=== PATIENT | female | born 1965 | race Caucasian/White ===

== ENCOUNTER 2020-07-18 11:09 | Emergency (ER) | payer BC, OTHER ==
[2020-07-18] MEDS ORDERED: KETOROLAC 30 MG/ML INJ ONE (14:01)
[2020-07-18 14:08] LABS: ALT/SGPT 33 U/L (12-78); AST/SGOT 12 U/L (15-37); Absolute Lymphocytes (CBC) 2.8 K/uL (0.7-4.9); Albumin 3.9 g/dL (3.4-5.0); Alkaline Phosphatase 113 U/L (45-117); BUN Blood Urea Nitrogen 27 mg/dL (7-18); Basophils % 0.7 % (0-1.3); Bicarbonate 30 mmol/L (21-32); Bilirubin Direct < 0.1 mg/dL (0-0.2); Bilirubin Total 0.3 mg/dL (0.2-1.0); Glucose Level 295 mg/dL (74-106); Lymphocytes % 44.5 % (15.3-44.8); MPV 8.2 fL (7.6-11.3); Magnesium 1.8 mg/dL (1.8-2.4); NT PRO-BNP 162 pg/mL (<125); Potassium 4.6 mmol/L (3.5-5.1); Protein, Total 7.7 g/dL (6.4-8.2); RBC Red Blood Cell Count 4.49 M/uL (3.86-4.86); Sodium Level 137 mmol/L (136-145); Troponin (Emerg Dept Use Only) < 0.02 ng/mL (0.0-0.045)
[2020-07-18 14:21] LABS: Protime INR 0.9
--- NOTE | 2020-07-18 14:44 | RAD REPORT ---
EXAM DESCRIPTION: Matt Single View07/18/2020 2:37 pm CLINICAL HISTORY: Chest pain COMPARISON: 2013 FINDINGS: The lungs appear clear of acute infiltrate. The heart is normal size IMPRESSION: No acute abnormalities displayed
--- NOTE | 2020-07-18 14:45 | RAD REPORT ---
EXAM DESCRIPTION: USExtrem Venous W Compress Bil07/18/2020 2:33 pm CLINICAL HISTORY: Bilateral leg swelling COMPARISON: none FINDINGS: The common femoral, superficial femoral, popliteal and posterior tibial veins bilaterally are compressible and demonstrate augmentation. Doppler demonstrates good flow. IMPRESSION: No evidence of deep venous thrombosis involving either lower extremity.
--- NOTE | 2020-07-18 20:10 | ER ---
Nurse's Notes [facility] Name: Sonali Neville Age: 55 yrs Sex: Female : 1965 Arrival Date: 07/18/2020 Time: 11:13 Bed 13 Private MD: Diagnosis: Chest pain, unspecified Presentation: 07/18 11:34 Chief complaint: Patient states: L chest pain with breathing since last night. No cough ll1 or fever. Pain increases with deep breathing. Coronavirus screen: Client denies travel out of the [place] in the last 14 days. At this time, the client does not indicate any symptoms associated with coronavirus-19. Ebola Screen: Patient denies travel to an Ebola-affected area in the 21 days before illness onset. Initial Sepsis Screen: Does the patient meet any 2 criteria? No. Patient's initial sepsis screen is negative. Does the patient have a suspected source of infection? No. Patient's initial sepsis screen is negative. Risk Assessment: Do you want to hurt yourself or someone else? Patient reports no desire to harm self or others. Onset of symptoms was July 17, 2020. 11:34 Method Of Arrival: Ambulatory ll1 11:34 Acuity: LIZETTE 3 ll1 Historical: - Allergies: 11:36 No Known Allergies; ll1 - PMHx: 11:36 Hypertension; Hypothyroidism; Diabetes - IDDM; ll1 - PSHx: 11:36 Cholecystectomy; Tonsillectomy; foot surgery; ll1 - Immunization history:: Client reports receiving the 1st dose of the Covid vaccine, Flu vaccine is up to date. - Social history:: Smoking status: Patient denies any tobacco usage or history of. Screenin:00 Abuse screen: Denies threats or abuse. Nutritional screening: No deficits noted. bw Tuberculosis screening: No symptoms or risk factors identified. Fall Risk None identified. Assessment: 14:00 Pain: Complains of pain in anterior aspect of left upper chest. Neuro: No deficits bw noted. Cardiovascular: Reports chest pain. Respiratory: Reports pain with movement pain with respiration. GI: No deficits noted. : No deficits noted. EENT: No deficits noted. Derm: No deficits noted. 15:03 Reassessment: Patient appears in no apparent distress at this time. Patient and/or bw family updated on plan of care and expected duration. Pain level reassessed. Patient is alert, oriented x 3, equal unlabored respirations, skin warm/dry/pink. 19:02 Reassessment: Patient appears in no apparent distress at this time. Patient and/or bw family updated on plan of care and expected duration. Pain level reassessed. Patient is alert, oriented x 3, equal unlabored respirations, skin warm/dry/pink. Vital Signs: 11:34 BP 179 / 94; Pulse 82; Resp 17; Temp 98.8; Pulse Ox 98% ; Weight 106.59 kg; Height 5 ll1 ft. 6 in. (167.64 cm); Pain 8/10; 13:44 BP 130 / 85; Pulse 73; Resp 18; Pulse Ox 100% on R/A; mh5 15:13 BP 131 / 78; Pulse 74; Resp 16; Temp 98.6(O); Pulse Ox 99% on R/A; mh5 16:06 BP 121 / 74; Pulse 71; Resp 17; Pulse Ox 100% on R/A; mh5 19:00 BP 116 / 69; Pulse 73; Resp 16; Pulse Ox 98% ; sf 19:03 BP 113 / 69; Pulse 72; Resp 15; Pulse Ox 99% on R/A; bw 19:15 BP 125 / 76; Pulse 74; Resp 16; Pulse Ox 97% ; sf 20:00 BP 121 / 60; Pulse 69; Resp 16; Pulse Ox 100% ; sf 11:34 Body Mass Index 37.93 (106.59 kg, 167.64 cm) ll1 ED Course: 11:13 Patient arrived in ED. ds1 11:34 Arm band placed on. ll1 11:36 Triage completed. ll1 13:18 Duke Cee PA is PHCP. cp 13:18 Serge Collins MD is Attending Physician. cp 13:25 Preeti Davis, BENJAMIN is Primary Nurse. bw 13:29 EKG done, by ED staff, reviewed by Serge Collins MD. mh5 13:30 Patient has correct armband on for positive identification. Placed in gown. Bed in low mh5 position. Call light in reach. Adult w/ patient. Warm blanket given. residential monitor on. Pulse ox on. NIBP on. 13:40 Inserted saline lock: 20 gauge in right wrist, using aseptic technique. Blood collected.jp3 13:40 Patient maintains SpO2 saturation greater than 95% on room air. 3 13:42 Troponin (emerg Dept Use Only) Sent. [facility] 13:42 PT-INR Sent. 5 13:42 NT PRO-BNP Sent. 5 13:42 Magnesium Sent. 5 13:42 LFT's Sent. 5 13:42 CBC with Diff Sent. 5 13:43 Basic Metabolic Panel Sent. 5 13:43 CBC with Automated Diff Sent. 5 13:43 Basic Metabolic Panel Sent. 5 13:43 Liver (Hepatic) Function Sent. 5 13:44 Initial lab(s) drawn, by ED staff, sent to lab. [facility] 14:00 No provider procedures requiring assistance completed. 19:10 Primary Nurse role handed off by Preeti Davis, BENJAMIN 19:10 Cornelio Maldonado, RN is Primary Nurse. sf 20:42 IV discontinued, intact, bleeding controlled, No redness/swelling at site. Pressure sf dressing applied. Administered Medications: 13:59 Drug: TORadol - (ketorolac) 15 mg Route: IVP; Site: right wrist; 16:08 Follow up: Response: No adverse reaction Outcome: 20:10 Discharge ordered by MD. cp 20:42 Discharged to home ambulatory. sf 20:42 Condition: stable 20:42 Discharge instructions given to patient, Instructed on discharge instructions, follow up and referral plans. medication usage, Demonstrated understanding of instructions, follow-up care, medications, Prescriptions given X 2. 20:45 Patient left the ED. sf Signatures: Eleanor Skinner 1 Duke Cee PA PA cp Martinez, Maria [facility] Paolo Grimes 3 Chinmay Sosa, RN RN 1 Cornelio Maldonado, BENJAMIN ALEXANDER Preeti Davis RN RN
--- NOTE | 2020-07-18 20:10 | EDPHYS ---
Physician Documentation [facility] Name: Sonali Neville Age: 55 yrs Sex: Female : 1965 Arrival Date: 07/18/2020 Time: 11:13 Bed 13 Private MD: ED Physician Serge Collins HPI: 07/18 13:30 This 55 yrs old Female presents to ER via Ambulatory with complaints of cp Painful Breathing. 13:30 The patient or guardian reports chest pain that is located primarily in the anterior cp chest wall, left. Onset: last night. 13:30 Duration: The patient or guardian reports a single episode, that is still ongoing, and cp unchanged. Modifying factors: the symptoms are aggravated by deep breath. 13:30 Associated signs and symptoms: Pertinent positives: lower extremity swelling, Pertinent cp negatives: abdominal pain, cough, diaphoresis, lower extremity pain, palpitations, shortness of breath, syncope. 13:30 The chest pain is described as dull. cp Historical: - Allergies: 11:36 No Known Allergies; ll1 - PMHx: 11:36 Hypertension; Hypothyroidism; Diabetes - IDDM; ll1 - PSHx: 11:36 Cholecystectomy; Tonsillectomy; foot surgery; ll1 - Immunization history:: Client reports receiving the 1st dose of the Covid vaccine, Flu vaccine is up to date. - Social history:: Smoking status: Patient denies any tobacco usage or history of. ROS: 13:35 Constitutional: Negative for body aches, chills, fever, poor PO intake. cp 13:35 Eyes: Negative for injury, pain, redness, and discharge. cp 13:35 ENT: Negative for ear pain, sore throat, difficulty swallowing, difficulty handling cp secretions. 13:35 Neck: Negative for pain with movement, pain at rest, stiffness. 13:35 Cardiovascular: Positive for chest pain, of the anterior aspect of left upper chest, Negative for edema, palpitations. 13:35 Respiratory: Negative for cough, dyspnea on exertion, shortness of breath, wheezing. 13:35 Abdomen/GI: Negative for abdominal pain, nausea, vomiting, and diarrhea. 13:35 Back: Negative for pain at rest, pain with movement, radiated pain. 13:35 Skin: Negative for rash. 13:35 Neuro: Negative for altered mental status, headache, syncope, weakness. cp 13:35 All other systems are negative. Exam: 13:40 Constitutional: The patient appears in no acute distress, alert, awake, cp non-diaphoretic, non-toxic, well developed, well nourished, obese. 13:40 Head/Face: Normocephalic, atraumatic. cp 13:40 Eyes: Periorbital structures: appear normal, Conjunctiva: normal, no exudate, no injection, Sclera: no appreciated abnormality, Lids and lashes: appear normal, bilaterally. 13:40 ENT: External ear(s): are unremarkable, Nose: is normal, Mouth: Lips: moist, Oral mucosa: moist, Posterior pharynx: Airway: no evidence of obstruction, patent. 13:40 Neck: ROM/movement: is normal, is supple, without pain, no range of motions limitations, no nuchal rigidity. 13:40 Chest/axilla: Inspection: normal, Palpation: crepitus, is not appreciated, tenderness, that is mild, of the anterior aspect of left upper chest, that partially reproduces the patient's complaints. 13:40 Cardiovascular: Rate: normal, Rhythm: regular, Edema: ankle edema, asymmetrical with left lower leg worse than right, JVD: is not appreciated. 13:40 Respiratory: the patient does not display signs of respiratory distress, Respirations: normal, no use of accessory muscles, no retractions, labored breathing, is not present, Breath sounds: are clear throughout, no decreased breath sounds, no stridor, no wheezing. 13:40 Abdomen/GI: Inspection: abdomen appears normal, Bowel sounds: active, all quadrants, Palpation: abdomen is soft and non-tender, in all quadrants. 13:40 Back: pain, that is very mild, ROM is normal. 13:40 Skin: no rash present. 13:40 Neuro: Orientation: to person, place \T\ time. Mentation: is normal, Motor: moves all fours, strength is normal, Sensation: is normal. 13:43 ECG was reviewed by the Attending Physician. cp Vital Signs: 11:34 BP 179 / 94; Pulse 82; Resp 17; Temp 98.8; Pulse Ox 98% ; Weight 106.59 kg; Height 5 ll1 ft. 6 in. (167.64 cm); Pain 8/10; 13:44 BP 130 / 85; Pulse 73; Resp 18; Pulse Ox 100% on R/A; mh5 15:13 BP 131 / 78; Pulse 74; Resp 16; Temp 98.6(O); Pulse Ox 99% on R/A; mh5 16:06 BP 121 / 74; Pulse 71; Resp 17; Pulse Ox 100% on R/A; mh5 19:00 BP 116 / 69; Pulse 73; Resp 16; Pulse Ox 98% ; sf 19:03 BP 113 / 69; Pulse 72; Resp 15; Pulse Ox 99% on R/A; bw 19:15 BP 125 / 76; Pulse 74; Resp 16; Pulse Ox 97% ; sf 20:00 BP 121 / 60; Pulse 69; Resp 16; Pulse Ox 100% ; sf 11:34 Body Mass Index 37.93 (106.59 kg, 167.64 cm) ll1 MDM: 13:38 Patient medically screened. cp 14:00 Differential diagnosis: bronchitis, pneumonia pulmonary embolism, pleurisy, acute VA, cp angina. 14:00 Differential diagnosis: abnormal EKG, acute myocardial infarction, acute pericarditis, cp cholecystitis, Cholelithiasis pancreatitis, pericarditis, pleurisy, pneumonia, pneumothorax, pulmonary embolus, stable angina, unstable angina. 16:42 ED course: Patient reports pain improved with IV toradol. cp 20:10 Data reviewed: vital signs, nurses notes, lab test result(s), EKG, radiologic studies, cp plain films. 20:10 Test interpretation: by ED physician or midlevel provider: ECG, plain radiologic cp studies. Counseling: I had a detailed discussion with the patient and/or guardian regarding: the historical points, exam findings, and any diagnostic results supporting the discharge/admit diagnosis, lab results, radiology results, the need for outpatient follow up, a family practitioner. Special discussion: Based on the patient's history, exam, and Dx evaluation, there is no indication for emergent intervention or inpatient Tx. It is understood by the patient/guardian that if the Sx's persist or worsen they need to return immediately for re-evaluation. 07/18 13:24 Order name: Basic Metabolic Panel cp 07/18 13:24 Order name: CBC with Diff cp 07/18 13:24 Order name: LFT's cp 07/18 13:24 Order name: Magnesium; Complete Time: 14:09 cp 07/18 13:24 Order name: NT PRO-BNP; Complete Time: 14:09 cp 07/18 13:24 Order name: PT-INR; Complete Time: 15:01 cp 07/18 13:24 Order name: Troponin (emerg Dept Use Only); Complete Time: 14:09 cp 07/18 15:02 Interpretation: Within normal limits: TROPED < 0.02. cp 07/18 13:25 Order name: Basic Metabolic Panel; Complete Time: 14:09 EDMS 07/18 15:02 Interpretation: Normal except: GLUC 295; BUN 27; GFR 83. cp 07/18 13:25 Order name: CBC with Automated Diff; Complete Time: 15:01 EDMS 07/18 15:01 Interpretation: Normal except: RDW 15.7. cp 07/18 13:25 Order name: Liver (Hepatic) Function; Complete Time: 14:09 EDMS 07/18 15:54 Interpretation: Normal except: AST 12; GLOB 3.8; A/G 1.0. cp 07/18 15:06 Order name: LAB Add On cp 07/18 16:38 Order name: D-Dimer; Complete Time: 16:41 EDMS 07/18 16:40 Order name: Troponin I; Complete Time: 20:09 cp 07/18 13:24 Order name: EKG; Complete Time: 13:25 cp 07/18 13:24 Order name: Cardiac monitoring; Complete Time: 13:28 cp 07/18 13:24 Order name: EKG - Nurse/Tech; Complete Time: 13:28 cp 07/18 13:24 Order name: IV Saline Lock; Complete Time: 13:43 cp 07/18 13:24 Order name: Labs collected and sent; Complete Time: 13:43 cp 07/18 13:24 Order name: O2 Per Protocol; Complete Time: 13:47 cp 07/18 13:24 Order name: O2 Sat Monitoring; Complete Time: 13:28 cp 07/18 14:08 Order name: US Extremity Venous W Compression Paul cp 07/18 14:44 Order name: RAD; Complete Time: 15:01 EDMS 07/18 15:01 Interpretation: Report reviewed. cp 07/18 14:47 Order name: US; Complete Time: 15:01 EDMS 07/18 15:02 Interpretation: Report reviewed. cp 04/14 16:40 Order name: Diet Regular; Complete Time: 17:04 cp 07/18 17:09 Order name: Lab Add On EDMS EC:43 Rate is 75 beats/min. Rhythm is regular. SD interval is normal. QRS interval is normal. cp QT interval is normal. T waves are Inverted in leads III, aVR. Interpreted by me. Reviewed by me. Administered Medications: 13:59 Drug: TORadol - (ketorolac) 15 mg Route: IVP; Site: right wrist; 16:08 Follow up: Response: No adverse reaction Disposition: 07/19 07:28 Co-signature as Attending Physician, Serge Collins MD I agree with the assessment and kdr plan of care. Disposition: 07/18/20 20:10 Discharged to Home. Impression: Chest pain, unspecified. - Condition is Stable. - Discharge Instructions: Nonspecific Chest Pain, Aspirin and Your Heart, Form - Excuse from Work, School, or Physical Activity. - Prescriptions for Tramadol 50 mg Oral Tablet - take 1 tablet by ORAL route every 8 hours as needed; 12 tablet. Diclofenac Sodium 75 mg Oral Tablet, Delayed Release (E.C.) - take 1 tablet by ORAL route 2 times per day; 20 tablet. - Medication Reconciliation Form, Thank You Letter, Antibiotic Education, Prescription Opioid Use, Work release form form. - Follow up: Private Physician; When: 1 - 2 days; Reason: Recheck today's complaints. - Problem is new. - Symptoms have improved. Signatures: Dispatcher [employer] EDMN Serge Collins MD MD [facility] Duke Cee PA PA cp Lewis, Lynsay, RN RN [facility] Cornelio Maldonado RN RN Preeti Davis RN RN Corrections: (The following items were deleted from the chart) 07/18 17:04 12:24 Chest Pa And Lat (2 Views)+RAD.RAD.BRZ ordered. [facility] EDMN 17:31 17:02 D-DIMER+COAG.LAB.BRZ ordered. [facility] EDMS 20:45 20:10 07/18/2020 20:10 Discharged to Home. Impression: Chest pain, unspecified. sf Condition is Stable. Forms are Medication Reconciliation Form, Thank You Letter, Antibiotic Education, Prescription Opioid Use. Follow up: Private Physician; When: 1 - 2 days; Reason: Recheck today's complaints. Problem is new. Symptoms have improved. cp
[2020-07-18 21:02] VITALS: TEMP 98.6
[2020-07-18 21:09] VITALS: BP 121/60; O2SAT 100
--- NOTE | 2020-07-19 07:36 | EKG ---
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
== END 2020-07-18 20:45 | disposition home or self-care (01) ==
LOC: ER 11:09
DX: R07.9 Chest pain, unspecified (principal); R22.43 Localized swelling, mass and lump, lower limb, bilateral; I10 Essential (primary) hypertension
CPT/HCPCS: 36415; 71045; 80048; 80076; 83735; 83880; 84484; 85025; 85379; 85610; 93005; 93970; 96374; 99285

== ENCOUNTER 2021-10-29 07:16 | Observation (INO) | payer BC ==
--- NOTE | 2021-10-29 08:31 | RAD REPORT ---
EXAM DESCRIPTION: RAD - Chest Pa And Lat (2 Views) - 10/29/2021 8:21 am CLINICAL HISTORY: SOB Chest pain. COMPARISON: Chest Single View dated 07/18/2020; CHEST SINGLE VIEW dated 10/10/2013 FINDINGS: The lungs are clear. The heart is normal in size. No displaced fractures. IMPRESSION: No acute or concerning finding suspected.
[2021-10-29 10:50] LABS: Absolute Lymphocytes (CBC) 2.7 K/uL (0.7-4.9); Hematocrit 36.1 % (36.0-45.0); Lymphocytes % 45.9 % (15.3-44.8); MCV 83.7 fL (80-100); MPV 7.3 fL (7.6-11.3); RBC Red Blood Cell Count 4.32 M/uL (3.86-4.86)
[2021-10-29 10:52] LABS: Protime INR 0.94
[2021-10-29] MEDS ORDERED: ENOXAPARIN 100 MG/ML SYR SQ ONE (10:59)
[2021-10-29] MEDS ORDERED: NA CHLORIDE 0.9% 1,000 ML ONE (10:59)
[2021-10-29] MEDS ORDERED: ASPIRIN 81 MG CHEWABLE TABLET ONE (10:59)
--- NOTE | 2021-10-29 11:10 | RAD REPORT ---
EXAM DESCRIPTION: US - Extrem Venous W Compress Paul - 10/29/2021 11:04 am CLINICAL HISTORY: Pain Bilateral leg edema and swelling. COMPARISON: Extrem Venous W Compress Paul dated 07/18/2020 TECHNIQUE: Real-time sonographic interrogation of the left and right lower extremity deep venous sys tems was performed. FINDINGS: Normal compressibility, flow augmentation, phasic flow and spontaneous flow is identified in both the left and right lower extremity deep venous systems. IMPRESSION: No sonographic evidence of left or right lower extremity deep venous thrombosis.
[2021-10-29 11:17] LABS: ALT/SGPT 43 U/L (12-78); AST/SGOT 19 U/L (15-37); Albumin 3.7 g/dL (3.4-5.0); Alkaline Phosphatase 99 U/L (45-117); BUN Blood Urea Nitrogen 16 mg/dL (7-18); Bicarbonate 22 mmol/L (21-32); Bilirubin Direct < 0.1 mg/dL (0-0.2); Bilirubin Total 0.4 mg/dL (0.2-1.0); Glomerular Filtration Rate 93 ml/min (=/>90); Glucose Level 202 mg/dL (74-106); Magnesium 1.7 mg/dL (1.8-2.4); NT PRO-BNP 261 pg/mL (<125); Potassium 4.1 mmol/L (3.5-5.1); Protein, Total 7.3 g/dL (6.4-8.2); Sodium Level 140 mmol/L (136-145); Troponin High Sensitivity 7.4 pg/mL (<58.9)
--- NOTE | 2021-10-29 11:38 | ER ---
Nurse's Notes [facility] Name: Sonali Neville Age: 56 yrs Sex: Female : 1965 Arrival Date: 10/29/2021 Time: 07:18 Bed 13 Private MD: Diagnosis: Chest pain, unspecified;Dyspnea;Hypomagnesemia Presentation: 10/29 07:22 Chief complaint: Patient states: Cough and shortness of breath with chest pressure x 5 jl7 days. Coronavirus screen: cough unrelated to allergies, shortness of breath, Client presents with at least one sign or symptom that may indicate coronavirus-19. Standard/surgical mask placed on the client. Ebola Screen: No symptoms or risks identified at this time. Initial Sepsis Screen: Does the patient meet any 2 criteria? No. Patient's initial sepsis screen is negative. Does the patient have a suspected source of infection? No. Patient's initial sepsis screen is negative. Risk Assessment: Do you want to hurt yourself or someone else? Patient reports no desire to harm self or others. Onset of symptoms was October 24, 2021. 07:22 Method Of Arrival: Ambulatory jl7 07:22 Acuity: LIZETTE 3 jl7 Triage Assessment: 07:24 General: Appears in no apparent distress. uncomfortable, Behavior is calm, cooperative, jl7 appropriate for age. Pain: Complains of pain in chest Pain does not radiate. Pain currently is 5 out of 10 on a pain scale. Quality of pain is described as pressure. Respiratory: Reports shortness of breath at rest cough that is non-productive, Airway is patent Respiratory effort is even, labored, Respiratory pattern is symmetrical, tachypnea Breath sounds are clear bilaterally. Onset: The symptoms/episode began/occurred gradually, the patient has mild shortness of breath. 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: 11:19 LMP N/A - Post-menopause jg9 Historical: - Allergies: 07:24 No Known Allergies; jl7 - Home Meds: 07:24 Toujeo Max U-300 SoloStar 300 unit/mL (3 mL) subcutaneous inpn [Active]; Lasix 40 mg jl7 Oral tab 1 tab 2 times per day [Active]; metformin 500 mg Oral tr24 1 tab QID [Active]; Farxiga 5 mg oral tab 1 tab once daily [Active]; Toprol XL 50 mg Oral Tb24 1 tab once daily [Active]; nabumetone 750 mg oral tab 1 tab 2 times per day [Active]; levothyroxine 125 mcg cap 1 cap once daily [Active]; Cytomel 25 mcg Oral tab 1 tab once daily [Active]; Ambien 10 mg Oral tab 1 tab once daily [Active]; Lipitor 20 mg Oral tab 1 tab once daily [Active]; Trelegy Ellipta inhalation [Active]; - PMHx: 07:24 Diabetes - IDDM; Hypertension; Hypothyroidism; Congestive heart failure; neuropathy; jl7 Hypercholesterolemia; pluerisy; - PSHx: 07:24 Cholecystectomy; jl7 - Immunization history:: Client reports receiving the 2nd dose of the Covid vaccine. - Social history:: Smoking status: Patient denies any tobacco usage or history of. Screenin:19 Abuse screen: Denies threats or abuse. Denies injuries from another. Nutritional jg9 screening: No deficits noted. Tuberculosis screening: No symptoms or risk factors identified. Fall Risk None identified. Assessment: 11:19 Cardiovascular: Rhythm is sinus rhythm. jg9 13:00 Reassessment: No changes from previously documented assessment. Patient and/or family jg9 updated on plan of care and expected duration. Pain level reassessed. Patient is alert, oriented x 3, equal unlabored respirations, skin warm/dry/pink. 15:00 Reassessment: No changes from previously documented assessment. Patient and/or family jg9 updated on plan of care and expected duration. Pain level reassessed. Patient is alert, oriented x 3, equal unlabored respirations, skin warm/dry/pink. 16:00 Reassessment: No changes from previously documented assessment. Patient and/or family jg9 updated on plan of care and expected duration. Pain level reassessed. Patient is alert, oriented x 3, equal unlabored respirations, skin warm/dry/pink. 18:54 Reassessment: Patient and/or family updated on plan of care and expected duration. Pain jg9 level reassessed. Patient is alert, oriented x 3, equal unlabored respirations, skin warm/dry/pink. Vital Signs: 07:22 BP 179 / 93; Pulse 77; Resp 22; Temp 97.7; Pulse Ox 99% on R/A; Weight 104.33 kg; jl7 Height 5 ft. 6 in. (167.64 cm); Pain 5/10; 10:38 BP 135 / 70; Pulse 76; Resp 24; Pulse Ox 100% on R/A; mb7 11:00 BP 140 / 84; Pulse 66; Resp 14; Pulse Ox 99% on R/A; jg9 12:00 BP 142 / 82; Pulse 68; Resp 16 S; Pulse Ox 96% on R/A; jg9 13:00 BP 135 / 65; Pulse 67; Resp 17 S; Pulse Ox 96% on R/A; jg9 14:00 BP 142 / 76; Pulse 71; Resp 18 S; Pulse Ox 97% on R/A; jg9 15:00 BP 137 / 66; Pulse 70; Resp 17; Pulse Ox 97% on R/A; jg9 16:00 BP 133 / 71; Pulse 69; Resp 16 S; Pulse Ox 95% on R/A; jg9 17:00 BP 130 / 70; Pulse 77; Resp 21 S; Pulse Ox 98% on R/A; jg9 18:00 BP 115 / 73; Pulse 68; Resp 12 S; Pulse Ox 97% ; jg9 07:22 Body Mass Index 37.12 (104.33 kg, 167.64 cm) jl7 ED Course: 07:18 Patient arrived in ED. rg4 07:24 Triage completed. jl7 07:40 Duke Velazquez MD is Attending Physician. shelley 07:45 Arm band placed on Patient placed in waiting room, Patient notified of wait time. EKG jl7 completed in triage. Results shown to . 08:23 XRAY Chest Pa And Lat (2 Views) In Process Unspecified. EDMS 10:22 Bed in low position. Call light in reach. Side rails up X 1. Door closed. Noise mb7 minimized. Warm blanket given. Client placed on continuous cardiac and pulse oximetry monitoring. NIBP monitoring applied. cafeteria monitor on. 10:32 Breanne Pettit, BENJAMIN is Primary Nurse. jg9 10:35 Basic Metabolic Panel Sent. mb7 10:35 CBC with Diff Sent. mb7 10:35 LFT's Sent. mb7 10:35 Troponin HS Sent. mb7 10:35 PT-INR Sent. mb7 10:35 NT PRO-BNP Sent. mb7 10:35 Magnesium Sent. mb7 10:36 EKG done, by ED staff, reviewed by Duke Velazquez MD. Inserted saline lock: 20 gauge in mb7 right forearm, using aseptic technique. Blood collected. 11:06 US Extremity Venous W Compression Paul In Process Unspecified. EDTN 11:34 Liam Solis MD is Hospitalizing Provider. [facility] 11:40 CT Chest For PE Angio In Process Unspecified. EDMS Administered Medications: 11:08 Drug: Aspirin Chewable Tablet 324 mg Route: PO; jg9 18:45 Follow up: Response: No adverse reaction jg9 11:10 Drug: Lovenox (enoxaparin) 100 mg Route: Sub-Q; Site: right upper arm; jg9 15:49 Follow up: Response: No adverse reaction jg9 11:13 Drug: NS 0.9% 1000 ml Route: IV; Rate: 125 ml/hr; Site: right antecubital; jg9 11:34 Drug: Magnesium Sulfate 1 grams Route: IVPB; Infused Over: 1 hrs; Site: left [facility] antecubital; 15:49 Follow up: IV Status: Completed infusion; IV Intake: 100ml jg9 Intake: 15:49 IV: 100ml; Total: 100ml. jg9 Outcome: 11:37 Decision to Hospitalize by Provider. [facility] 10/30 13:48 Patient left the ED. jg9 Signatures: Dispatcher [employer] Duke Ferro MD MD cha Garcia, Rubi rg4 Anthony Valentin, RN RN jl7 Breanne Barry RN RN [facility] Breanne Pettit, BENJAMIN RN jg9
--- NOTE | 2021-10-29 11:38 | EDPHYS ---
Physician Documentation [facility] Name: Sonali Neville Age: 56 yrs Sex: Female : 1965 Arrival Date: 10/29/2021 Time: 07:18 Bed 13 Private MD: ANN MARIE Physician Duke Velazquez HPI: 10/29 10:29 This 56 yrs old Female presents to ER via Ambulatory with complaints of shelley Breathing Difficulty. 10:29 The patient has shortness of breath at rest, with light activity. Onset: The shelley symptoms/episode began/occurred 3 day(s) ago. Duration: The symptoms are continuous, and are steadily getting worse. The patient's shortness of breath is aggravated by walking, is alleviated by rest, sitting up, application of supplemental oxygen. Associated signs and symptoms: Pertinent positives: non-productive cough. Severity of symptoms: At their worst the symptoms were mild moderate in the emergency department the symptoms have improved mildly. The patient has not experienced similar symptoms in the past. 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 LMP N/A - Post-menopause jg9 Historical: - Allergies: 07:24 No Known Allergies; jl7 - Home Meds: 07:24 Toujeo Max U-300 SoloStar 300 unit/mL (3 mL) subcutaneous inpn [Active]; Lasix 40 mg jl7 Oral tab 1 tab 2 times per day [Active]; metformin 500 mg Oral tr24 1 tab QID [Active]; Farxiga 5 mg oral tab 1 tab once daily [Active]; Toprol XL 50 mg Oral Tb24 1 tab once daily [Active]; nabumetone 750 mg oral tab 1 tab 2 times per day [Active]; levothyroxine 125 mcg cap 1 cap once daily [Active]; Cytomel 25 mcg Oral tab 1 tab once daily [Active]; Ambien 10 mg Oral tab 1 tab once daily [Active]; Lipitor 20 mg Oral tab 1 tab once daily [Active]; Trelegy Ellipta inhalation [Active]; - PMHx: 07:24 Diabetes - IDDM; Hypertension; Hypothyroidism; Congestive heart failure; neuropathy; jl7 Hypercholesterolemia; pluerisy; - PSHx: 07:24 Cholecystectomy; jl7 - Immunization history:: Client reports receiving the 2nd dose of the Covid vaccine. - Social history:: Smoking status: Patient denies any tobacco usage or history of. ROS: 10:30 Constitutional: Negative for fever, chills, and weight loss, Eyes: Negative for injury, shelley pain, redness, and discharge, ENT: Negative for injury, pain, and discharge, Neck: Negative for injury, pain, and swelling, Respiratory: Negative for shortness of breath, cough, wheezing, and pleuritic chest pain, Abdomen/GI: Negative for abdominal pain, nausea, vomiting, diarrhea, and constipation, Back: Negative for injury and pain, : Negative for injury, bleeding, discharge, and swelling, MS/Extremity: Negative for injury and deformity, Skin: Negative for injury, rash, and discoloration, Neuro: Negative for headache, weakness, numbness, tingling, and seizure, Psych: Negative for depression, anxiety, suicide ideation, homicidal ideation, and hallucinations, Endocrine: Negative for neck swelling, polydipsia, polyuria, polyphagia, and marked weight changes, Hematologic/Lymphatic: Negative for swollen nodes, abnormal bleeding, and unusual bruising. 10:30 Cardiovascular: Positive for chest pain. 10:30 Respiratory: Positive for shortness of breath, at rest. Exam: 10:30 Constitutional: This is a well developed, well nourished patient who is awake, alert, shelley and in no acute distress. Head/Face: Normocephalic, atraumatic. Eyes: Pupils equal round and reactive to light, extra-ocular motions intact. Lids and lashes normal. Conjunctiva and sclera are non-icteric and not injected. Cornea within normal limits. Periorbital areas with no swelling, redness, or edema. ENT: Nares patent. No nasal discharge, no septal abnormalities noted. Tympanic membranes are normal and external auditory canals are clear. Oropharynx with no redness, swelling, or masses, exudates, or evidence of obstruction, uvula midline. Mucous membranes moist. Neck: Trachea midline, no thyromegaly or masses palpated, and no cervical lymphadenopathy. Supple, full range of motion without nuchal rigidity, or vertebral point tenderness. No Meningismus. Chest/axilla: Normal chest wall appearance and motion. Nontender with no deformity. No lesions are appreciated. Cardiovascular: Regular rate and rhythm with a normal S1 and S2. No gallops, murmurs, or rubs. Normal PMI, no JVD. No pulse deficits. Respiratory: Lungs have equal breath sounds bilaterally, clear to auscultation and percussion. No rales, rhonchi or wheezes noted. No increased work of breathing, no retractions or nasal flaring. Back: No spinal tenderness. No costovertebral tenderness. Full range of motion. Skin: Warm, dry with normal turgor. Normal color with no rashes, no lesions, and no evidence of cellulitis. MS/ Extremity: Pulses equal, no cyanosis. Neurovascular intact. Full, normal range of motion. Neuro: Awake and alert, GCS 15, oriented to person, place, time, and situation. Cranial nerves II-XII grossly intact. Motor strength 5/5 in all extremities. Sensory grossly intact. Cerebellar exam normal. Normal gait. Psych: Awake, alert, with orientation to person, place and time. Behavior, mood, and affect are within normal limits. 10:30 ECG was reviewed by the Attending Physician. 10:30 Abdomen/GI: Inspection: abdomen appears normal, distension, that is mild, Bowel sounds: normal, Palpation: abdomen is soft and non-tender, Liver: no appreciated palpable abnormalities, Hernia: not appreciated. Vital Signs: 07:22 BP 179 / 93; Pulse 77; Resp 22; Temp 97.7; Pulse Ox 99% on R/A; Weight 104.33 kg; jl7 Height 5 ft. 6 in. (167.64 cm); Pain 5/10; 10:38 BP 135 / 70; Pulse 76; Resp 24; Pulse Ox 100% on R/A; mb7 11:00 BP 140 / 84; Pulse 66; Resp 14; Pulse Ox 99% on R/A; jg9 12:00 BP 142 / 82; Pulse 68; Resp 16 S; Pulse Ox 96% on R/A; jg9 13:00 BP 135 / 65; Pulse 67; Resp 17 S; Pulse Ox 96% on R/A; jg9 14:00 BP 142 / 76; Pulse 71; Resp 18 S; Pulse Ox 97% on R/A; jg9 15:00 BP 137 / 66; Pulse 70; Resp 17; Pulse Ox 97% on R/A; jg9 16:00 BP 133 / 71; Pulse 69; Resp 16 S; Pulse Ox 95% on R/A; jg9 17:00 BP 130 / 70; Pulse 77; Resp 21 S; Pulse Ox 98% on R/A; jg9 18:00 BP 115 / 73; Pulse 68; Resp 12 S; Pulse Ox 97% ; jg9 07:22 Body Mass Index 37.12 (104.33 kg, 167.64 cm) jl7 MDM: 07:40 Patient medically screened. shelley 10:33 Differential diagnosis: Anemia Anxiety Reaction abnormal EKG, acute myocardial shelley infarction, anxiety, coronary artery disease chest wall pain, Cholelithiasis hiatal hernia, pneumonia, pulmonary embolus, stable angina, unstable angina, Myocardial Infarction pulmonary edema, Pulmonary Embolism. Antibiotic administration: Not indicated. HEART Score: ECG: Normal (0), Age: > 45 and < 65 years (1), Risk Factors: > or = 3 Risk factors for atherosclerotic disease (2), [Hypercholesterolemia] [Hypertension] [DM] [+ Family HX] [Obesity] Troponin: < or = 1 x Normal Limit (0). The patient was given aspirin in the Emergency Department. The patient's Wells Deep Vein Thrombosis Score was calculated as follows: the patient has localized tenderness along the distribution of the deep venous system (1.0 Pts) Total Score: 1 to 2 points. This patient was found to be at moderate risk for a deep vein thrombosis by using the Well's assessment criteria Suspected DVT (3 Pts) Total Score: 0-2 Pts- Low Risk. The patient's pulmonary embolism risk score was calculated as follows: suspected deep vein thrombosis (3 Pts) Total Score: 3-6 points. This patient was found to be at moderate risk for a pulmonary embolism by using the Well's assessment criteria suspected deep vein thrombosis (3 Pts) Total Score: 3-6 points. This patient was found to be at moderate risk for a pulmonary embolism by using the Well's assessment criteria. NUNU Risk Score: 1 - Three or more CAD risk factors, TOTAL SCORE = 1. Immunization status: Influenza vaccine: Data reviewed: vital signs, nurses notes, lab test result(s), EKG, radiologic studies, plain films. Data interpreted: development director: rate is 77 beats/min, rhythm is regular, Pulse oximetry: on room air is 99 %. Test interpretation: by ED physician or midlevel provider: ECG, plain radiologic studies. 10/29 07:34 Order name: SARS-COV-2 RT PCR (Document "Date of Onset" if Symptomatic); Complete Time: 10:22 10/29 10:21 Order name: Basic Metabolic Panel; Complete Time: 11:28 [facility] 10/29 10:21 Order name: CBC with Diff; Complete Time: 11:12 [facility] 10/29 10:21 Order name: LFT's; Complete Time: 11:28 [facility] 10/29 10:21 Order name: Magnesium; Complete Time: 11:28 [facility] 10/29 10:21 Order name: NT PRO-BNP; Complete Time: 11:28 [facility] 10/29 10:21 Order name: PT-INR; Complete Time: 11:12 [facility] 10/29 10:21 Order name: Troponin HS; Complete Time: 11:28 [facility] 10/29 12:31 Order name: Urinalysis [facility] 10/29 12:31 Order name: CKMB Creatine Kinase MB [facility] 10/29 12:31 Order name: CKMB Creatine Kinase MB; Complete Time: 21:56 [facility] 10/29 12:31 Order name: CKMB Creatine Kinase MB; Complete Time: 21:56 [facility] 10/29 12:31 Order name: CKMB Creatine Kinase MB [facility] 10/29 12:31 Order name: Creatine Phosphokinase [facility] 10/29 07:34 Order name: XRAY Chest Pa And Lat (2 Views); Complete Time: 10: [facility] 10/29 10:28 Order name: CT Chest For PE Angio; Complete Time: 21:56 [facility] 10/29 10:28 Order name: US Extremity Venous W Compression Paul; Complete Time: 11:12 [facility] 10/29 12:31 Order name: Creatine Phosphokinase; Complete Time: 21:56 [facility] 10/29 12:31 Order name: Creatine Phosphokinase; Complete Time: 21:56 [facility] 10/29 12:31 Order name: Creatine Phosphokinase [facility] 10/29 15:49 Order name: Troponin High Sensitivity; Complete Time: 21:56 [facility] 10/29 20:53 Order name: Troponin High Sensitivity; Complete Time: 21:56 [facility] 10/30 05:57 Order name: Lipid Profile [facility] 10/30 05:57 Order name: LDL, Direct [facility] 10/30 05:57 Order name: Creatine Phosphokinase [facility] 10/30 05:57 Order name: CKMB Creatine Kinase MB [facility] 10/30 05:57 Order name: Troponin High Sensitivity [facility] 10/30 08:45 Order name: Glucose, Ancillary Testing [facility] 10/30 12:50 Order name: Glucose, Ancillary Testing [facility] 10/29 10:21 Order name: EKG; Complete Time: 10: [facility] 10/29 10:21 Order name: Cardiac monitoring; Complete Time: [facility] 10/29 10:21 Order name: EKG - Nurse/Tech; Complete Time: 10:35 [facility] 10/29 10:21 Order name: IV Saline Lock; Complete Time: [facility] 10/29 10:21 Order name: Labs collected and sent; Complete Time: 10: [facility] 10/29 10:21 Order name: O2 Per Protocol; Complete Time: : [facility] 10/29 10:21 Order name: O2 Sat Monitoring; Complete Time: [facility] 10/29 10:46 Order name: Misc. Order: STRICT BED REST; Complete Time: 11:12 [facility] 10/29 12:31 Order name: Heart Healthy EDMS EC:30 Rate is 72 beats/min. Rhythm is regular. QRS [place] is Normal. [place] interval is normal. QRS shelley interval is normal. QT interval is normal. No Q waves. T waves are Normal. No ST changes noted. Clinical impression: Normal ECG and No evidence of ischemia. Interpreted by me. Reviewed by me. Administered Medications: 11:08 Drug: Aspirin Chewable Tablet 324 mg Route: PO; jg9 18:45 Follow up: Response: No adverse reaction jg9 11:10 Drug: Lovenox (enoxaparin) 100 mg Route: Sub-Q; Site: right upper arm; jg9 15:49 Follow up: Response: No adverse reaction jg9 11:13 Drug: NS 0.9% 1000 ml Route: IV; Rate: 125 ml/hr; Site: right antecubital; jg9 11:34 Drug: Magnesium Sulfate 1 grams Route: IVPB; Infused Over: 1 hrs; Site: left 6 antecubital; 15:49 Follow up: IV Status: Completed infusion; IV Intake: 100ml jg9 Disposition Summary: 10/29/21 11:37 Hospitalization Ordered Hospitalization Status: Observation shelley Provider: Liam Solis cha Condition: Fair shelley Problem: new shelley Symptoms: have improved shelley Bed/Room Type: Standard shelley Location: [facility] ER HOLD(10/29/21 19:04) 7 Room Assignment: ERHOLD-(10/29/21 19:04) jl7 Diagnosis - Chest pain, unspecified shelley - Dyspnea shelley - Hypomagnesemia shelley Discharge Instructions: - Discharge Summary Sheet jg9 Forms: - Medication Reconciliation Form shelley - SBAR form shelley - Work release form jg9 Signatures: Dispatcher [employer] EDDuke Espinal MD MD cha Leal, Jahala RN RN jl7 Breanne Barry RN RN jh6 Breanne Pettit, RN RN jg9 Lauren García PA PA [id number] Corrections: (The following items were deleted from the chart) 11:04 10:22 Chest Single View+RAD.RAD.BRZ ordered. [facility] 19:04 11:37 Telemetry/MedSurg (observation) shelley [facility] 19:04 11:37 shelley [place]
[2021-10-29] MEDS ORDERED: MAGNESIUM SULFATE 1 gm IVPB 1 GM/100 ML BAG IV ONE (11:41)
--- NOTE | 2021-10-29 11:55 | RAD REPORT ---
EXAM DESCRIPTION: CT - Chest For Pe Angio - 10/29/2021 11:38 am CLINICAL HISTORY: Chest pain. Pulmonary embolism (PE) suspected, high prob COMPARISON: No comparisons TECHNIQUE: CT angiogram of the pulmonary arteries was performed with MIP. All CT scans are performed using dose optimization technique as appropriate and may include automated exposure control or mA/KV adjustment according to patient size. FINDINGS: No evidence of pulmonary thromboembolism. No acute aortic finding demonstrated. The lungs are clear. No significant pericardial or pleural fluid. Small hiatal hernia. No concerning bony finding. IMPRESSION: No evidence of pulmonary thromboembolism. No acute lung findings.
[2021-10-29] MEDS ORDERED: ONDANSETRON 4 MG/2 ML VIAL IV PRN (12:25)
[2021-10-29] MEDS ORDERED: ACETAMINOPHEN 500 MG TAB PO PRN (12:25)
[2021-10-29 14:20] LABS: CKMB Creatine Kinase MB 2.2 ng/mL (1.0-3.6)
[2021-10-29] MEDS: INSULIN -REGULAR HUMAN 50 UNIT/0.5 ML ML SQ SCH ×2 (16:30→21:00)
--- NOTE | 2021-10-29 17:38 | P.HP ---
Certification for Inpatient Patient admitted to: Observation With expected LOS: <2 Midnights Practitioner: I am a practitioner with admitting privileges, knowledge of patient current condition, hospital course, and medical plan of care. Services: Services provided to patient in accordance with Admission requirements found in Title 42 Section 412.3 of the Code of Federal Regulations Patient History Date of Service: 10/29/21 Reason for admission: Chest pain History of Present Illness: 56-year-old female patient with medical history significant for diabetes type 2, hypertension, hyperlipidemia who was evaluated in the emergency room for episode of chest pain. She started to feel sensation of heaviness in the chest and she rated sensation between 6-7 out of 10 in intensity. She had no nausea, vomiting, feeling of impending sense of doom with chest discomfort episode. There was no radiation to the back, between the shoulder blades or to the neck or jaw area. She reported no dizzy spells. She reported that she has had significant issues with her sensation in the past but this was the most disturbing. She was asked to be evaluated for chest pain work-up. In the ER, troponin was within acceptable limits and there were no issues with significant lab abnormality except for modest elevation of glucose of 200. She also had imaging studies done with a CT of the chest that showed no dissection and chest x-ray was none revealing. Allergies No Known Allergies Allergy (Unverified 02/12/12 08:42) Review of Systems General: Unremarkable Eyes: Unremarkable ENT: Unremarkable Respiratory: Unremarkable Cardiovascular: Chest Pain Gastrointestinal: Unremarkable Genitourinary: Unremarkable Musculoskeletal: Unremarkable Integumentary: Unremarkable Neurological: Unremarkable Physical Examination - Physical Exam General: Alert, Oriented x3 HEENT: Atraumatic, Normocephalic Neck: Supple Respiratory: Normal air movement Cardiovascular: Regular rate/rhythm, Normal S1 S2 Gastrointestinal: Soft and benign Musculoskeletal: No swelling Neurological: Normal speech - Studies Laboratory Data (last 24 hrs) 10/29/21 10:33: PT 10.3, INR 0.94 10/29/21 10:33: WBC 6.0, Hgb 12.1, Hct 36.1, Plt Count 225 10/29/21 10:33: Sodium 140, Potassium 4.1, BUN 16, Creatinine 0.76, Glucose 202 H, Magnesium 1.7 L, Total Bilirubin 0.4, AST 19, ALT 43, Alkaline Phosphatase 99 Assessment and Plan - Plan Chest pain: Suspicion for ACS noted. We will trend troponin, start patient on aspirin and statin therapy. Will obtain echocardiogram to evaluate ejection fraction and wall motion. Cardiology to evaluate as needed. DM 2: Will continue patient on sliding scale insulin for glucose control and carb restricted diet. Will reconcile home medications. we will monitor blood sugar before meals and at bedtime. Hyperlipidemia: we will continue statin therapy and monitor lipid pane. Prophylaxis: - Advance Directives Does patient have a Living Will: No Does patient have a Durable POA for Healthcare: No
[2021-10-29 20:53] LABS: CKMB Creatine Kinase MB 1.5 ng/mL (1.0-3.6); Troponin High Sensitivity 7.6 pg/mL (<58.9)
[2021-10-30 00:19] VITALS: BMI 37.1
[2021-10-30 04:40] LABS: HDL Cholesterol 22 mg/dL (40-60)
[2021-10-30 04:41] LABS: CKMB Creatine Kinase MB 1.7 ng/mL (1.0-3.6); Troponin High Sensitivity 6.5 pg/mL (<58.9)
[2021-10-30 05:44] LABS: LDL, Direct 45 mg/dL (100-129)
[2021-10-30] MEDS: INSULIN -REGULAR HUMAN 50 UNIT/0.5 ML ML SQ SCH ×2 (07:30→11:30)
[2021-10-30] MEDS ORDERED: ENOXAPARIN 40 MG/0.4 ML SQ SCH (09:00)
[2021-10-30] MEDS ORDERED: ASPIRIN EC 81 MG TAB PO SCH (09:00)
[2021-10-30] MEDS ORDERED: INSULIN -REGULAR HUMAN 50 UNIT/0.5 ML ML ONE (10:02)
[2021-10-30] MEDS ORDERED: ENOXAPARIN 40 MG/0.4 ML SQ ONE (10:09)
[2021-10-30] MEDS ORDERED: ASPIRIN EC 81 MG TAB PO ONE (10:09)
--- NOTE | 2021-10-30 12:39 | P.DS ---
Admission Date: 10/29/21 Discharge Date: 10/30/21 Disposition: ROUTINE DISCHARGE Discharge Condition: GOOD Reason for Admission: Chest pain Brief History of Present Illness: 56-year-old female patient with medical history significant for diabetes type 2, hypertension, hyperlipidemia who was evaluated in the emergency room for episode of chest pain. She started to feel sensation of heaviness in the chest and she rated sensation between 6-7 out of 10 in intensity. She had no nausea, vomiting, feeling of impending sense of doom with chest discomfort episode. There was no radiation to the back, between the shoulder blades or to the neck or jaw area. She reported no dizzy spells. She reported that she has had significant issues with her sensation in the past but this was the most disturbing. She was asked to be evaluated for chest pain work-up. In the ER, troponin was within acceptable limits and there were no issues with significant lab abnormality except for modest elevation of glucose of 200. She also had imaging studies done with a CT of the chest that showed no dissection and chest x-ray was none revealing. Hospital Course: she had troponin trend for ACS work-up and this was found to be normal. Overnight hospital admission she had no repeat episode of chest pain. I lipid panel did come out with significant elevated triglyceride of 1400. We started on increased dose of atorvastatin and added fenofibrate for better lipid control. We discussed with her about need for lifestyle changes and diet modification and to follow-up with his primary care doctor for adjustment of antilipid medications. She also follow-up with cardiology on outpatient for work-up and possible stress test. She is to continue with low-dose aspirin therapy for vascular risk reduction. Vital Signs/Physical Exam: Temp Pulse Resp BP Pulse Ox 98.1 F 62 16 125/73 97 10/30/21 04:00 10/30/21 04:00 10/30/21 04:00 10/30/21 04:00 10/30/21 04:00 General: Alert, Oriented x3 HEENT: Atraumatic, Normocephalic Neck: Supple Respiratory: Normal air movement Cardiovascular: Regular rate/rhythm, Normal S1 S2 Gastrointestinal: Soft and benign Musculoskeletal: No swelling Neurological: Normal speech Laboratory Data at Discharge: WBC 6.0 K/uL (4.3-10.9) 10/29/21 10:33 Hgb 12.1 g/dL (12.0-15.0) 10/29/21 10:33 Hct 36.1 % (36.0-45.0) 10/29/21 10:33 Plt Count 225 K/uL (152-406) 10/29/21 10:33 PT 10.3 SECONDS (9.5-12.5) 10/29/21 10:33 INR 0.94 10/29/21 10:33 Sodium 140 mmol/L (136-145) 10/29/21 10:33 Potassium 4.1 mmol/L (3.5-5.1) 10/29/21 10:33 BUN 16 mg/dL (7-18) 10/29/21 10:33 Creatinine 0.76 mg/dL (0.55-1.3) 10/29/21 10:33 Glucose 202 mg/dL (74-106) H 10/29/21 10:33 Magnesium 1.7 mg/dL (1.8-2.4) L 10/29/21 10:33 Total Bilirubin 0.4 mg/dL (0.2-1.0) 10/29/21 10:33 AST 19 U/L (15-37) 10/29/21 10:33 ALT 43 U/L (12-78) 10/29/21 10:33 Alkaline Phosphatase 99 U/L (45-117) 10/29/21 10:33 Triglycerides 1428 mg/dL (<150) H 10/30/21 02:29 Cholesterol 150 mg/dL (<200) 10/30/21 02:29 LDL Cholesterol Direct 45 mg/dL (100-129) L 10/30/21 02:29 HDL Cholesterol 22 mg/dL (40-60) L 10/30/21 02:29 Cholesterol/HDL Ratio 6.82 10/30/21 02:29 Home Medications: Atorvastatin Calcium [Lipitor] 40 mg PO BEDTIME 30 Days #30 tab 10/30/21 Dapagliflozin Propanediol [Farxiga] 10/30/21 Fenofibrate [Tricor*] 160 mg PO DAILY AT SUPPER 30 Days #30 tab 10/30/21 Fluticasone/Umeclidin/Vilanter [Trelegy Ellipta 200-62.5-25] 10/30/21 Furosemide [Lasix] 40 mg PO 10/30/21 Insulin Glargine,Hum.rec.anlog [Touesperanza Squires Solostar] 300 unit SQ 10/30/21 Levothyroxine [Synthroid*] 125 mcg PO [id number] 10/30/21 Liothyronine Sodium [Cytomel] 25 mcg PO 10/30/21 Metformin HCl 300 mg PO DAILY 10/30/21 Metoprolol Succinate [Toprol Xl*] 50 mg PO DAILY 10/30/21 Nabumetone 750 mg PO 10/30/21 Zolpidem Tartrate [Ambien] 10 mg PO 10/30/21 New Medications: Atorvastatin Calcium [Lipitor] 40 mg PO BEDTIME 30 Days #30 tab Fenofibrate [Tricor*] 160 mg PO DAILY AT SUPPER 30 Days #30 tab Diet: AHA Activity: Ad brett Followup: Chuy Earl MD [Primary Care Provider] -
[2021-10-30 16:27] VITALS: TEMP 97.7
--- NOTE | 2021-10-30 16:32 | EKG ---
Test Date: 2021-10-29 Test Time: 07:52:45 Claims Account Specialist: JOSE MEASUREMENT RESULTS: Intervals: Rate: 72 SD: 142 QRSD: 84 QT: 428 QTc: 468 [place]: P: 34 SD: 142 QRS: 17 T: 26 INTERPRETIVE STATEMENTS: Normal sinus rhythm Low voltage QRS Borderline ECG Compared to ECG 07/18/2020 13:36:34 Low QRS voltage now present Electronically Signed On 10-30-21 16:30:32 CDT by Rahul Dobbins
[2021-10-30 16:51] VITALS: BP 115/73; O2SAT 97
[2021-10-30] MEDS ORDERED: FENOFIBRATE 160 MG TAB PO SCH (17:00)
[2021-10-30] MEDS ORDERED: ATORVASTATIN 40 MG TAB PO SCH (21:00)
[2021-10-31] MEDS ORDERED: LEVOTHYROXINE SOD 0.125 MG TAB PO SCH (06:00)
--- NOTE | 2021-10-31 06:45 | ECHO ---
HEIGHT: 5 ft 6 in WEIGHT: 230 lb 0 oz DATE OF STUDY: 10/30/[address]: Liam Solis MD 2-DIMENSIONAL: YES M.MODE: YES DOPPLER: YES COLOR FLOW: YES TDS: NO PORTABLE: YES DEFINITY: NO BUBBLE STUDY: NO DIAGNOSIS: CHEST PAIN EVALUATION CARDIAC HISTORY: CATHERIZATION: SURGERY: PROSTHETIC VALVE: PACEMAKER: MEASUREMENTS (cm) DIASTOLIC (NORMALS) SYSTOLIC (NORMALS) IVSd 1.0 (0.6-1.2) LA Diam 2.5 (1.9-4.0) LVEF 66% LVIDd 4.8 (3.5-5.7) LVIDs 3.0 (2.0-3.5) %FS 36% LVPWd 1.1 (0.6-1.2) Ao Diam 2.3 (2.0-3.7) 2 DIMENSIONAL ASSESSMENT: RIGHT ATRIUM: NORMAL LEFT ATRIUM: NORMAL RIGHT VENTRICLE: NORMAL LEFT VENTRICLE: NORMAL TRICUSPID VALVE: NORMAL MITRAL VALVE: NORMAL PULMONIC VALVE: NORMAL AORTIC VALVE: NORMAL PERICARDIAL EFFUSION: NONE AORTIC ROOT: NORMAL LEFT VENTRICULAR WALL MOTION: NORMAL DOPPLER/COLOR FLOW: NORMAL COMMENTS: NORMAL 2D ECHOCARDIOGRAM WITH DOPPLER. NO WALL MOTION ABNORMALITY. NO EFFUSION. TECHNOLOGIST: Lena BROWN
[2021-10-31] MEDS ORDERED: METOPROLOL XL 50 MG TAB PO SCH (09:00)
[2021-10-31] MEDS ORDERED: METFORMIN HCL 500 MG TAB PO SCH (09:00)
[2021-10-31] MEDS ORDERED: NABUMETONE 750 MG PO SCH (09:00)
[2021-10-31] MEDS ORDERED: LIOTHYRONINE SOD 25 MCG TAB PO SCH (09:00)
== END 2021-10-30 13:49 | disposition home or self-care (01) ==
LOC: ER 07:16 → ERHOLD 12:29
PROVIDERS: ADMIT Internal Medicine Nephrology; ATTEND Internal Medicine Nephrology
DX: R07.9 Chest pain, unspecified (principal); E11.9 Type 2 diabetes mellitus without complications; I11.0 Hypertensive heart disease with heart failure; I50.9 Heart failure, unspecified; E78.5 Hyperlipidemia, unspecified; E03.9 Hypothyroidism, unspecified; E83.42 Hypomagnesemia; Z79.84 Long term (current) use of oral hypoglycemic drugs; Z79.4 Long term (current) use of insulin; Z79.899 Other long term (current) drug therapy; Z90.49 Acquired absence of other specified parts of digestive tract; Z20.822 Contact with and (suspected) exposure to COVID-19
CPT/HCPCS: 96365; 93005; 93306; 85025; 80048; 36415; 83721; 83735; 82550 ×3; 85610; 80061; 82947 ×2; 80076; 84484 ×4; 82553 ×3; 83880; 71275; 71046; 93970; 96372; 99284; 96366; U0003; Q9967; J1815; J1650 ×2; J3475; J7030; G0378 ×3